=== PATIENT | female | born 1990 | race Caucasian/White ===

== ENCOUNTER 2018-05-17 08:27 | Emergency (ER) | payer OTHER ==
--- NOTE | 2018-05-17 09:04 | EDPHY ---
H & P Stated Complaint: Bilateral side pain. Time Seen by Provider: 05/17/18 08:53 HPI/ROS: CHIEF COMPLAINT: Bilateral rib pain HISTORY OF PRESENT ILLNESS: The patient is a 27-year-old female who comes to the emergency depart with her dad complaining of bilateral rib pain. She states that she has had right lateral rib pain for about 2 weeks after doing yoga. This has persisted and then she developed left lateral rib pain after doing yoga again on Saturday. She also had a upper respiratory type infection about 1 month ago. She is not currently having a fever. No cough. No shortness of breath. No chest pain. No abdominal pain. No nausea vomiting. No diarrhea. No urinary symptoms. She denies back pain. She states that occasionally her left flank pain does radiate down to her left lower quadrant area. Pain is worse with deep inspiration. She does not take hormones. She does not smoke. No recent travel or surgery. No leg pain or swelling. She denies risk of . Severity: Moderate Modifying factors: Worse with deep inspiration or movement REVIEW OF SYSTEMS: Constitutional: denies: chills, fever, recent illness, recent injury EENTM: denies: blurred vision, double vision, nose congestion Respiratory: denies: cough, shortness of breath Cardiac: denies: chest pain, irregular heart rate, lightheadedness, palpitations Gastrointestinal/Abdominal: denies: abdominal pain, diarrhea, nausea, vomiting, blood streaked stools Genitourinary: denies: dysuria, frequency, hematuria, pain Musculoskeletal: denies: joint pain, muscle pain Skin: denies: lesions, rash, jaundice, bruising Neurological: denies: headache, numbness, paresthesia, tingling, dizziness, weakness Hematologic/Lymphatic: denies: blood clots, easy bleeding, easy bruising Immunologic/allergic: denies: HIV/AIDS, transplant 10 systems reviewed and negative except as noted EXAM: GENERAL: Well-appearing, well-nourished and in no acute distress. HEAD: Atraumatic, normocephalic. EYES: Pupils equal round and reactive to light, extraocular movements intact, sclera anicteric, conjunctiva are normal. ENT: TMs normal, nares patent, oropharynx clear without exudates. Moist mucous membranes. NECK: Normal range of motion, supple without lymphadenopathy or JVD. LUNGS: Tenderness to left rib cage. No crepitus. Breath sounds clear to auscultation bilaterally and equal. No wheezes rales or rhonchi. HEART: Regular rate and rhythm without murmurs, rubs or gallops. ABDOMEN: Soft, nontender, normoactive bowel sounds. No guarding, no rebound. No masses appreciated. Negative Marquez sign BACK: No CVA tenderness, no spinal tenderness, step-offs or deformities EXTREMITIES: Normal range of motion, no pitting or edema. No clubbing or cyanosis. NEUROLOGICAL: Cranial nerves II through XII grossly intact. Normal speech, normal gait. 5/5 strength, normal movement in all extremities, normal sensation , normal reflexes PSYCH: Normal mood, normal affect. SKIN: Warm, dry, normal turgor, no visible rashes or lesions. Source: Patient Exam Limitations: No limitations - Personal History LMP (Females 10-55): 8-14 Days Ago Current Tetanus/Diphtheria Vaccine: Unsure Current Tetanus Diphtheria and Acellular Pertussis (TDAP): Unsure - Medical/Surgical History Hx Asthma: No Hx Chronic Respiratory Disease: No Hx Diabetes: No Hx Cardiac Disease: No Hx Renal Disease: No Hx Cirrhosis: No Hx Alcoholism: No Hx HIV/AIDS: No Hx Splenectomy or Spleen Trauma: No Other PMH: Thoracic outlet syndrome-no surgery. - Family History Significant Family History: No pertinent family hx - Social History Smoking Status: Never smoked Alcohol Use: None Constitutional: Initial Vital Signs Temperature (C) 36.5 C 05/17/18 08:32 Heart Rate 106 H 05/17/18 08:32 Respiratory Rate 18 05/17/18 08:32 Blood Pressure 135/84 H 05/17/18 08:32 O2 Sat (%) 99 05/17/18 08:32 O2 Delivery Mode Room Air Allergies/Adverse Reactions: No Known Allergies Allergy (Unverified 05/17/18 08:31) Home Medications: Medication Instructions Recorded NK [No Known Home Meds] 05/17/18 Medical Decision Making - Diagnostics EKG Interpretation: An EKG obtained and was read and documented in trace view. Please see trace view for full reading and report. Sinus rhythm, no acute ischemic changes Imaging Results: Imaging Impressions Abdomen Ultrasound 05/17/18 09:00 Impression: Negative right upper quadrant ultrasound. Results called and discussed with ZULAY TEMPLE M.D. on 05/17/2018 at 10:38. Chest X-Ray 05/17/18 09:00 Impression: No significant radiographic abnormality. Specifically, a source for chest pain is not identified. Pelvic/Renal Ultrasound 05/17/18 09:00 Impression: Essentially normal pelvic ultrasound for a 27-year-old female. Results called and discussed with Zulay Temple M.D. on 05/17/2018 at 10:36 a.m. Imaging: Discussed imaging studies w/ call center consultant Radiologist ED Course/Re-evaluation: 10:15 a.m. We discussed the imaging and lab results which are all very reassuring. Patient does have small amount of blood in her urine but just had her period last week. She has not had dysuria or frequency. No CVA pain. We did discuss performing a CT scan to rule out stones however she and her dad declined. They think that it is likely musculoskeletal. We also discussed the possibility of it being pleurisy concerned her recent viral infection. In the end we agreed to let her go home and take ibuprofen and hydrate and rest and return if she developed concerning symptoms such as fever, gross hematuria or worsening pain. Otherwise she will follow up with her primary doctor. Differential Diagnosis: Partial list of the Differential diagnosis considered include but were not limited to; muscle strain, pleurisy and although unlikely based on the history and physical exam, I also considered biliary disease, kidney stone, urinary tract infection, ovarian cyst, urinary tract infection. I discussed these differential diagnoses and the plan with the patient as well as the usual and expected course. The patient understands that the diagnosis is provisional and that in medicine we are not always correct and that further workup is often warranted. Usual and customary warnings were given. All of the patient's questions were answered. The patient was instructed to return to the emergency department should the symptoms at all worsen or return, otherwise to followup with the physician as we discussed. - Data Points Laboratory Results: Laboratory Results 05/17/18 09:07 05/17/18 09:07 05/17/18 05/17/18 05/17/18 09:07 09:07 09:07 WBC RBC Hgb Hct MCV MCH MCHC RDW Plt Count MPV Neut % (Auto) Lymph % (Auto) [place] % (Auto) Eos % (Auto) Baso % (Auto) Nucleat RBC Rel Count Absolute Neuts (auto) Absolute Lymphs (auto) Absolute Monos (auto) Absolute Eos (auto) Absolute Basos (auto) Absolute Nucleated RBC Immature Gran % Immature Gran # D-Dimer < 0.27 ug/mLFEU ug/mLFEU (0.00-0.50) Sodium 138 mEq/L mEq/L (135-145) Potassium 4.3 mEq/L mEq/L (3.5-5.2) Chloride 111 mEq/L H mEq/L (97-110) Carbon Dioxide 22 mEq/l mEq/l (22-31) Anion Gap 5 mEq/L L mEq/L (6-14) BUN 9 mg/dL mg/dL (7-23) Creatinine 1.0 mg/dL mg/dL (0.6-1.0) Estimated GFR > 60 Glucose 90 mg/dL mg/dL (70-100) Calcium 9.4 mg/dL mg/dL (8.5-10.4) Total Bilirubin 0.6 mg/dL mg/dL (0.1-1.4) Conjugated Bilirubin 0.3 mg/dL mg/dL (0.0-0.5) Unconjugated Bilirubin 0.3 mg/dL mg/dL (0.0-1.1) AST 21 IU/L IU/L (14-46) ALT 31 IU/L IU/L (9-52) Alkaline Phosphatase 55 IU/L IU/L (38-126) Total Protein 6.7 g/dL g/dL (6.3-8.2) Albumin 4.0 g/dL g/dL (3.5-5.0) Lipase 51 IU/L IU/L (23-300) Beta HCG, Qual NEGATIVE Urine Color Urine Appearance Urine pH Ur Specific [place] Urine Protein Urine Ketones Urine Blood Urine Nitrate Urine Bilirubin Urine Urobilinogen Ur Leukocyte Esterase Urine RBC Urine WBC Ur Epithelial Cells Urine Bacteria Urine Mucus Urine Glucose 05/17/18 05/17/18 09:07 08:55 WBC 7.25 10^3/uL 10^3/uL (3.80-9.50) RBC 4.41 10^6/uL 10^6/uL (4.18-5.33) Hgb 13.4 g/dL g/dL (12.6-16.3) Hct 38.8 % % (38.0-47.0) MCV 88.0 fL fL (81.5-99.8) MCH 30.4 pg pg (27.9-34.1) MCHC 34.5 g/dL g/dL (32.4-36.7) RDW 12.0 % % (11.5-15.2) Plt Count 315 10^3/uL 10^3/uL (150-400) MPV 8.9 fL fL (8.7-11.7) Neut % (Auto) 55.2 % % (39.3-74.2) Lymph % (Auto) 31.3 % % (15.0-45.0) [place] % (Auto) 8.3 % % (4.5-13.0) Eos % (Auto) 2.8 % % (0.6-7.6) Baso % (Auto) 2.1 % H % (0.3-1.7) Nucleat RBC Rel Count 0.0 % % (0.0-0.2) Absolute Neuts (auto) 4.01 10^3/uL 10^3/uL (1.70-6.50) Absolute Lymphs (auto) 2.27 10^3/uL 10^3/uL (1.00-3.00) Absolute Monos (auto) 0.60 10^3/uL 10^3/uL (0.30-0.80) Absolute Eos (auto) 0.20 10^3/uL 10^3/uL (0.03-0.40) Absolute Basos (auto) 0.15 10^3/uL H 10^3/uL (0.02-0.10) Absolute Nucleated RBC 0.00 10^3/uL 10^3/uL (0-0.01) Immature Gran % 0.3 % % (0.0-1.1) Immature Gran # 0.02 10^3/uL 10^3/uL (0.00-0.10) D-Dimer Sodium Potassium Chloride Carbon Dioxide Anion Gap BUN Creatinine Estimated GFR Glucose Calcium Total Bilirubin Conjugated Bilirubin Unconjugated Bilirubin AST ALT Alkaline Phosphatase Total Protein Albumin Lipase Beta HCG, Qual Urine Color YELLOW Urine Appearance HAZY Urine pH 5.0 (5.0-7.5) Ur Specific [place] 1.018 (1.002-1.030) Urine Protein NEGATIVE (NEGATIVE) Urine Ketones NEGATIVE (NEGATIVE) Urine Blood 1+ H (NEGATIVE) Urine Nitrate NEGATIVE (NEGATIVE) Urine Bilirubin NEGATIVE (NEGATIVE) Urine Urobilinogen NEGATIVE EU EU (0.2-1.0) Ur Leukocyte Esterase NEGATIVE (NEGATIVE) Urine RBC 1-3 /hpf /hpf (0-3) Urine WBC 1-3 /hpf /hpf (0-3) Ur Epithelial Cells 2+ /lpf H /lpf (NONE-1+) Urine Bacteria TRACE /hpf H /hpf (NONE SEEN) Urine Mucus 1+ /lpf /lpf (NONE-1+) Urine Glucose NEGATIVE (NEGATIVE) Departure - Departure Disposition: Home, Routine, Self-Care Clinical Impression: Rib pain bilateral Condition: Fair Instructions: Pleurisy (ED), Muscle Strain (ED) Referrals: Patrice Najera MD [Primary Care Provider] - 2-3 days, if not improved
[2018-05-17 09:23] LABS: PLATELET COUNT 315 10^3/uL (150-400)
--- NOTE | 2018-05-17 10:15 | CPEKG ---
Test Reason : OPEN Blood Pressure : / mmHG Vent. Rate : 081 BPM Atrial Rate : 080 BPM P-R Int : 118 ms QRS Dur : 085 ms QT Int : 363 ms P-R-T Axes : 058 069 047 degrees QTc Int : 422 ms Sinus rhythm Confirmed by Zulay Temple ([id number]) on 05/17/2018 10:15:17 AM Referred By: ZULAY TEMPLE Confirmed By:Zulay Temple
[2018-05-17 10:31] VITALS: BP 123/74
== END 2018-05-17 10:33 | disposition home or self-care (01) ==
DX: R07.81 Pleurodynia (principal)